=== PATIENT | female | born 1950 | race Caucasian/White ===

== ENCOUNTER → 2024-01-11 11:16 | Outpatient (REF) | payer OTHER, SELFPAY | LOC: HWWDC 11:16 | PROVIDERS: ATTENDING PHYSICIAN Student in an Organized Health Care Education/Training Program; FAMILY PHYSICIAN Family Medicine | DX: Z12.31 Encounter for screening mammogram for malignant neoplasm of breast (principal) | CPT/HCPCS: 77063; 77067 ==

== ENCOUNTER → 2024-09-24 12:51 | Outpatient (REF) | payer OTHER, MEDICARE, SELFPAY | LOC: HWRCS 12:51 | PROVIDERS: ATTENDING PHYSICIAN Internal Medicine; FAMILY PHYSICIAN Student in an Organized Health Care Education/Training Program | DX: I10 Essential (primary) hypertension (principal); I34.0 Nonrheumatic mitral (valve) insufficiency; I45.4 Nonspecific intraventricular block; I34.1 Nonrheumatic mitral (valve) prolapse | CPT/HCPCS: 93306 ==

== ENCOUNTER 2024-10-18 11:07 | Emergency (ER) | payer OTHER, SELFPAY ==
[2024-10-18 11:15] VITALS: BP 162/82
[2024-10-18 11:35] LABS: % Basophils 0.2 % (0-2); % Immature Granulocytes 0.5 % (0-0.5); % Lymphocytes 2.2 % (20.5-51.1); % Monocytes 6.5 % (1.7-9.3); % Neutrophils 90.6 % (42.2-75.2); Absolute Immature Granulocytes 0.1 10^3/uL (0-0.05); Absolute Lymphocytes 0.3 10^3/uL (1.2-3.4); Absolute Monocytes 0.8 10^3/uL (0.1-0.6); Hematocrit 41.9 % (37.0-47.0); Hemoglobin 14.2 g/dL (12.0-16.0); Mean Corp Hgb Conc. 33.9 g/dL (33.0-37.0); Mean Corpuscular Hgb 31.8 pg (27.0-31.0); Mean Corpuscular Volume 93.9 fL (81.0-99.0); Mean Platelet Volume 9.2 fL (7.4-10.4); Nucleated Red Blood Cells % 0 %; Platelet Count 210 10^3/uL (130-400); Red Blood Cell Count 4.46 10^6/uL (4.20-5.40); Red Cell Dist. Width 13.1 % (11.5-14.5); White Blood Cell Count 12.1 10^3/uL (4.8-10.8)
[2024-10-18 12:06] LABS: ALT (SGPT) 38 U/L (0-35); AST (SGOT) 43 U/L (14-36); Albumin 4.9 g/dl (3.5-5.0); Alkaline Phosphatase 58 U/L (38-126); Blood Urea Nitrogen 20 mg/dl (7-17); Carbon Dioxide 28 mmol/L (22-30); Chloride 101 mmol/L (98-107); Glucose 128 mg/dl (70-99); Lipase 104 U/L (23-300); Potassium 3.8 mmol/L (3.5-5.1); Sodium 140 mmol/L (135-145); Total Bilirubin 0.6 mg/dl (0.2-1.3); Total Protein 7.4 g/dl (6.3-8.2); eGFR > 60.00
[2024-10-18 13:03] VITALS: BP 143/102
--- NOTE | 2024-10-18 13:13 | ED.GENMED ---
History of Present Illness
General
Chief Complaint: Abdominal Symptoms
Source: patient
Time Seen by Provider: 10/18/24 12:59
History of Present Illness
History of Present Illness:
74yoF with a history of rheumatoid arthritis, Sjogren's, hypertension, and hyperlipidemia presenting with her and daughter for evaluation of vomiting and diarrhea. Symptoms started around 7pm last night, about 1 hour after eating a pork chop
for dinner. She reports having about 5 episodes of vomiting and diarrhea since her symptoms began. She has been unable to tolerate PO intake or PO medications. She reports intermittent chest pain which she attributes to feeling fatigued. She denies
any chest pain currently. She denies any fevers or abdominal pain. Of note, patient's also had some vomiting and diarrhea last night but he is currently feeling better. No recent travel or recent antibiotics.
Phy Exam
General Physical Exam
General Presentation: well appearing and no apparent distress
General age: appears stated age
General Skin: warm and dry
General Habitus: normal
General Mental: alert
ENT Exam
ENT Exam: normocephalic
Cardiovascular Exam
Cardiovascular Exam: regular rate/rhythm and no murmur
Pulmonary Exam
Pulmonary Exam: lungs clear, no respiratory distress, no rales, no crackles and no rhonchi
Gastrointestinal Exam
Gastrointestinal Exam: non tender, soft and non distended
Neurological Exam
Neurological Exam: alert
[place] Coma Scale
Eye Opening: Spontaneous
Verbal Response: Oriented
Motor Response: Obeys Commands
GCS Total Score: 15
Skin Exam
Skin Exam: normal color and warm/dry
Psychiatric Exam
Psychiatric Exam: normal mood/affect
Course
Orders/Labs/Results
Orders:
Orders
10/18/24 11:27
Complete Blood Count/With Diff Urgent
Comprehensive Metabolic Panel Urgent
Lipase Urgent
10/18/24 13:12
0.9% Sodium Chloride 500 ml [Nss] 500 ml IV BOLUS
Ondansetron Injectable [Zofran] 4 mg IV NOW STA
10/18/24 13:13
Electrocardiogram (*1) Urgent
Reason for Study: Chest Pain
EKG- Treatment ONCE
10/18/24 14:09
Hepatitis A IgM Antibody Urgent
Troponin I Urgent
10/18/24 14:10
Acetaminophen [Tylenol] 650 mg PO NOW STA
10/18/24 14:21
COVID-19 Antigen Urgent
Source: Nasal Swab
Influenza A+B Rapid Molecular Urgent
VICKY Source: Nasal Swab
Specimen Description:
Abnormal Lab Results
10/18/24
11:27
WBC 12.1 H 10^3/uL
(4.8-10.8)
MCH 31.8 H pg
(27.0-31.0)
Abs Immat Gran (auto) 0.1 H 10^3/uL
(0-0.05)
Absolute Neuts (auto) 11.0 H 10^3/uL
(1.4-6.5)
Absolute Lymphs (auto) 0.3 L 10^3/uL
(1.2-3.4)
Absolute Monos (auto) 0.8 H 10^3/uL
(0.1-0.6)
Neutrophils % 90.6 H %
(42.2-75.2)
Lymphocytes % 2.2 L %
(20.5-51.1)
BUN 20 H mg/dl
(7-17)
Glucose 128 H mg/dl
(70-99)
AST 43 H U/L
(14-36)
ALT 38 H U/L
(0-35)
10/18/24 11:27
10/18/24 11:27
Vital Signs
Initial and Last Documented VS:
Initial Vital Signs
Temp Pulse Resp BP Pulse Ox
99.1 F 110 16 162/82 98
10/18/24 11:15 10/18/24 11:15 10/18/24 11:15 10/18/24 11:15 10/18/24 11:15
Last Documented Vital Signs
Temp Pulse Resp BP Pulse Ox
98.6 F 93 23 139/61 93
10/18/24 15:41 10/18/24 15:15 10/18/24 15:15 10/18/24 15:00 10/18/24 15:15
MDM/Problems Addressed
Differential Diagnosis Includes:
74yoF here with nausea, vomiting, and diarrhea since last night. also had similar symptoms but to a lesser degree. HR 110 in triage. Remainder of vitals normal. She is non-toxic appearing. Abdominal exam is benign. Differential diagnosis
includes but is not limited to: viral illness, gastroenteritis, dehydration
Initial ED plan: Abdominal labs obtained in triage. WBC 12 which is nonspecific and may be reactive 2/2 vomiting. Mild transaminitis noted. Renal function stable. Troponin/EKG, COVID/flu swab, stool studies ordered. Will also check hepatitis A
testing given transaminitis. IV Zofran and fluid bolus for symptoms.
*Critical Care Note
Total Time (30-74mins, 75-104mins- exclusive of procedures): Not Applicable
Update Note
Update Note:
Patient spiked a fever to 101 during ED stay. COVID/flu testing negative. She is feeling significantly improved on reassessment and tolerated PO challenge. Patient unable to provide stool sample. Patient requesting discharge which is reasonable.
Suspect viral illness. Prescription provided for Zofran as well as outpatient stool testing. Supportive care discussed. Advised close f/u with PCP and strict ED return precautions discussed. She was discharged in stable condition.
ED Attending Note
-
Portions of this chart may have been created with voice recognition software.� Occasional wrong word or��sound alike� substitutions may have occurred due to the inherent limitations of voice recognition software.
Discharge Plan
Departure
Patient Disposition: Home (Routine Discharge)
Date of Disposition: 10/18/24
Time of Disposition: 15:31
Patient with high blood pressure during this ER visit?: Yes
Discharge Problem:
Nausea, vomiting, and diarrhea, Fever
Instructions: Nausea and Vomiting, Adult (DC)
Prescriptions:
New
ondansetron 4 mg tablet,disintegrating
4 mg PO Q6H PRN (Reason: nausea and vomiting) Qty: 20 0RF
No Action
atorvastatin 20 MG tablet
20 mg PO HS
diltiazem HCl 240 MG capsule,extended release 24hr
240 mg PO DAILY
hydrochlorothiazide 12.5 MG capsule
12.5 mg PO DAILY
hydroxychloroquine 200 MG tablet
300 mg PO DAILY
atenolol 50 MG tablet
50 mg PO HS
Prolia 60 MG/ML syringe
60 mg SQ .2XYEAR
aspirin [Scar Chewable Aspirin] 81 MG tablet,chewable
81 mg PO DAILY
cholecalciferol (vitamin D3) 1,000 UNITS tablet
1,000 units PO DAILY
Vitamin C:
250 mg PO DAILY
Citracel-Calcium Citrate
4 tab PO DAILY
Referrals:
Mariela Gambino DO [Family Provider] -
Activity Restrictions/Additional Instructions:
Take Zofran as needed for nausea. Drink plenty of fluids. Eat a bland diet (rice, applesauce, toast, bananas).
Please follow-up with your family doctor on Sunday. Return to the ER with any worsening symptoms, abdominal pain, or if you are unable to keep down fluids.
Interventions
Interventions:
*Risk Screen - Suicide Last Done: 10/18/24 11:15
*General Assessment Last Done: 10/18/24 13:55
*Neglect/Abuse Screening Last Done: 10/18/24 11:15
*ED COVID-19 Vaccine History Last Done: 10/18/24 13:55
*Nursing Disposition Last Done: 10/18/24 15:42
[facility] Assessment Last Done: 10/18/24 13:55
Discharge Date and Time
Discharge Date/Time: 10/18/24 15:47
Print Language: ROMANIAN
[2024-10-18 13:55] VITALS: BP 143/102; BMI 33.3
[2024-10-18] MEDS: NSS 500 IV (14:10)
[2024-10-18] MEDS: ZOFRAN 4 MG IV (14:14)
[2024-10-18] MEDS: TYLENOL 650 MG PO (14:16)
[2024-10-18 14:22] VITALS: BP 125/92
[2024-10-18 14:47] LABS: Troponin I < 0.012 ng/ml
[2024-10-18 15:00] VITALS: BP 139/61
[2024-10-18 15:03] LABS: COVID-19 Antigen Negative (Negative)
[2024-10-20 19:56] LABS: Hepatitis A IgM Antibody Negative (Negative)
== END 2024-10-18 15:47 | disposition home or self-care (01) ==
LOC: EMR 11:07
PROVIDERS: Physician Assistant; EMERGENCY PHYSICIAN Emergency Medicine; FAMILY PHYSICIAN Family Medicine
DX: R11.2 Nausea with vomiting, unspecified (principal); R19.7 Diarrhea, unspecified; R50.9 Fever, unspecified; I10 Essential (primary) hypertension; M06.9 Rheumatoid arthritis, unspecified; E78.5 Hyperlipidemia, unspecified; M35.00 Sjogren syndrome, unspecified
CPT/HCPCS: 96374; 96361; 99284; 80053; 83690; 84484; 85025; 86709; 87502; 87811; 93005

== ENCOUNTER → 2024-10-28 10:11 | Outpatient (REF) | payer OTHER, SELFPAY | LOC: RCS 10:11 | PROVIDERS: ATTENDING PHYSICIAN Internal Medicine; FAMILY PHYSICIAN Family Medicine | DX: R06.09 Other forms of dyspnea (principal); R07.89 Other chest pain | CPT/HCPCS: 93017 ==

== ENCOUNTER → 2025-01-14 13:20 | Outpatient (REF) | payer OTHER, SELFPAY | LOC: HWWDC 13:20 | PROVIDERS: ATTENDING PHYSICIAN Family Medicine | DX: Z12.31 Encounter for screening mammogram for malignant neoplasm of breast (principal) | CPT/HCPCS: 77063; 77067 ==

== ENCOUNTER 2025-03-05 14:27 | Emergency (ER) | payer OTHER, SELFPAY ==
[2025-03-05 14:29] VITALS: BP 165/74
[2025-03-05 16:51] VITALS: BMI 32.3
[2025-03-05 16:56] LABS: % Basophils 0.5 % (0-2); % Immature Granulocytes 0.2 % (0-0.5); % Lymphocytes 19.7 % (20.5-51.1); % Monocytes 13.1 % (1.7-9.3); % Neutrophils 65.5 % (42.2-75.2); Absolute Eosinophils 0.1 10^3/uL (0-0.7); Absolute Lymphocytes 1.6 10^3/uL (1.2-3.4); Absolute Monocytes 1.1 10^3/uL (0.1-0.6); Absolute Neutrophils 5.4 10^3/uL (1.4-6.5); Hematocrit 38.2 % (37.0-47.0); Hemoglobin 13.2 g/dL (12.0-16.0); Mean Corp Hgb Conc. 34.6 g/dL (33.0-37.0); Mean Corpuscular Volume 92.5 fL (81.0-99.0); Mean Platelet Volume 9.4 fL (7.4-10.4); Nucleated Red Blood Cells % 0 %; Platelet Count 229 10^3/uL (130-400); Red Blood Cell Count 4.13 10^6/uL (4.20-5.40); Red Cell Dist. Width 12.7 % (11.5-14.5); White Blood Cell Count 8.2 10^3/uL (4.8-10.8)
[2025-03-05 17:03] VITALS: BP 154/81
[2025-03-05 17:15] LABS: ALT (SGPT) 27 U/L (0-35); AST (SGOT) 31 U/L (14-36); Albumin 4.2 g/dl (3.5-5.0); Alkaline Phosphatase 61 U/L (38-126); Blood Urea Nitrogen 15 mg/dl (7-17); Calcium 10.3 mg/dl (8.4-10.2); Carbon Dioxide 29 mmol/L (22-30); Chloride 103 mmol/L (98-107); Estimated Creatinine Clearance 54 ml/min; Glucose 107 mg/dl (70-99); Potassium 3.6 mmol/L (3.5-5.1); Sodium 141 mmol/L (135-145); Total Bilirubin 0.5 mg/dl (0.2-1.3); Total Protein 6.8 g/dl (6.3-8.2); eGFR > 60.00
--- NOTE | 2025-03-05 17:38 | ED.GENMED ---
History of Present Illness
General
Chief Complaint: Gait Dysfunction
Source: patient, spouse and family
Exam Limitations: none
Time Seen by Provider: 03/05/25 15:37
History of Present Illness
History of Present Illness:
This is a 74-year-old female who has been dealing with difficulty walking for 2 to 3 weeks. Patient states that she does not have any pain but just has had difficulty keeping her balance and walking. Daughter states that she started to notice that
she was at difficulty walking getting up onto stools back on [place]. states that she has not reported any pain. Patient denies any pain. She states it seems to be intermittently improved and intermittently worse at times. Saw her
bar attendant. She was advised to have PT. No fevers. No joint pain. No muscle pain. No radiating nerve pain. No back pain. No headache. No upper extremity symptoms. Symptoms are only in the left lower extremity and she seems to limp.
Denies back pain.
Past History
Past History
ED Past Medical History: HTN, Hypercholesterolemia and Other (Sjogren's)
Phy Exam
Physical Exam
Physical Exam:
CONSTITUTIONAL Patient alert and oriented to person, place and time. Well-appearing. Vital signs reviewed.
HEAD atraumatic, normocephalic.
EYES eyelids normal to inspection, Extraocular muscles intact, Conjunctiva normal, Sclera normal.
NECK normal range of motion, Trachea midline, no jugular venous distention.
RESPIRATORY CHEST No respiratory distress noted, Chest expansion equal, Bilateral breath sounds clear.
CARDIOVASCULAR regular rate and rhythm, Heart sounds normal.
ABDOMEN abdomen nontender, Bowel sounds normal. No distention.
BACK normal inspection, no obvious deformities
UPPER EXTREMITY range of motion normal, Motor strength normal, no cyanosis, no edema.
LOWER EXTREMITY range of motion normal, Motor strength normal, no cyanosis, no edema. No effusion at the joints. No redness. No swelling. No rash. Negative straight leg raise. No clonus. Normal DTRs. Gait is normal on my assessment.
Patient is able to walk straight. No obvious limp. Normal pulses distally and feet are warm and well-perfused.
NEURO Speech normal, No focal motor deficits, [place] coma scale 15, Memory normal, Cranial Nerves intact to screening exam.
SKIN skin warm, dry, and normal in color.
Course
Orders/Labs/Results
Orders:
Orders
03/05/25 16:17
CT Head W/o Iv Contrast Urgent
Comment:
Reason For Exam: LLE weak, gait disturbance
03/05/25 16:43
Complete Blood Count/With Diff Urgent
Comprehensive Metabolic Panel Urgent
Abnormal Lab Results
03/05/25
16:43
RBC 4.13 L 10^6/uL
(4.20-5.40)
MCH 32.0 H pg
(27.0-31.0)
Absolute Monos (auto) 1.1 H 10^3/uL
(0.1-0.6)
Lymphocytes % 19.7 L %
(20.5-51.1)
Monocytes % 13.1 H %
(1.7-9.3)
Glucose 107 H mg/dl
(70-99)
Calcium 10.3 H mg/dl
(8.4-10.2)
03/05/25 16:43
03/05/25 16:43
Vital Signs
Initial and Last Documented VS:
Initial Vital Signs
Temp Pulse Resp BP Pulse Ox
98.5 F 84 18 165/74 96
03/05/25 14:29 03/05/25 14:29 03/05/25 14:03/05/25 14:03/05/25 14:29
Last Documented Vital Signs
Temp Pulse Resp BP Pulse Ox
98.5 F 84 18 165/74 96
03/05/25 14:29 03/05/25 14:03/05/25 14:03/05/25 14:29 03/05/25 14:29
MDM/Problems Addressed
Differential Diagnosis Includes:
Brain tumor, stroke, peripheral neuropathy, inflammatory joint disease
MDM/Problems Addressed:
Gait dysfunction
*Radiology
Radiology exam reviewed: radiology read reviewed
*Pulse Oximetry
Patient hypoxic: no
*Critical Care Note
Total Time (30-74mins, 75-104mins- exclusive of procedures): Not Applicable
Data Reviewed
Source: patient and family
Further Testing Considered But Not Given:
Consider lumbar imaging but no back pain.
Patient Management
Escalation/DeEscalation of care consider admission/obs:
Patient is quite well. Normal pulses distally. No pain noted or by history. Normal neurologic assessment. No upper extremity symptoms. No cranial nerve symptoms. No speech changes. Gait normal during my exam. Unclear etiology. Will refer to
PCP for MRI of the lumbar spine and brain if symptoms persist
ED Attending Note
-
Portions of this chart may have been created with voice recognition software.� Occasional wrong word or��sound alike� substitutions may have occurred due to the inherent limitations of voice recognition software.
Discharge Plan
Departure
Patient Disposition: Home (Routine Discharge)
Date of Disposition: 03/05/25
Time of Disposition: 17:45
Patient with high blood pressure during this ER visit?: Yes
Discharge Problem:
Gait dysfunction
Instructions: BLOOD PRESSURE
Prescriptions:
No Action
atorvastatin 20 MG tablet
20 mg PO HS
diltiazem HCl 240 MG capsule,extended release 24hr
240 mg PO DAILY
hydrochlorothiazide 12.5 MG capsule
12.5 mg PO DAILY
hydroxychloroquine 200 MG tablet
300 mg PO DAILY
atenolol 50 MG tablet
50 mg PO HS
Prolia 60 MG/ML syringe
60 mg SQ .2XYEAR
aspirin [Scar Chewable Aspirin] 81 MG tablet,chewable
81 mg PO DAILY
cholecalciferol (vitamin D3) 1,000 UNITS tablet
1,000 units PO DAILY
Vitamin C:
250 mg PO DAILY
Citracel-Calcium Citrate
4 tab PO DAILY
ondansetron 4 mg tablet,disintegrating
4 mg PO Q6H PRN (Reason: nausea and vomiting) Qty: 20 0RF
Referrals:
Mariela Gambino DO [Family Provider] -
Activity Restrictions/Additional Instructions:
Gait dysfunction
Please see your doctor in the next 3 to 5 days for follow-up and reevaluation. Further evaluation with an MRI of your brain and lumbar spine may be necessary if symptoms persist. Return immediately for pain of any kind, fevers, motor weakness,
speech changes or any other concerns.
Interventions
Interventions:
*Risk Screen - Suicide Last Done: 03/05/25 14:29
*General Assessment Last Done: 03/05/25 14:29
*Neglect/Abuse Screening Last Done: 03/05/25 16:54
*ED COVID-19 Vaccine History Last Done: 03/05/25 14:29
ED- Neurological Assessment Last Done: 03/05/25 16:51
ED-Musculoskeletal Assessment Last Done: 03/05/25 16:51
ED Swallowing Screen Last Done: 03/05/25 16:51
Discharge Date and Time
Print Language: LAO
[2025-03-05 18:00] VITALS: BP 171/69
== END 2025-03-05 18:33 | disposition home or self-care (01) ==
LOC: EMR 14:27
PROVIDERS: EMERGENCY PHYSICIAN Emergency Medicine; FAMILY PHYSICIAN Family Medicine
DX: R26.89 Other abnormalities of gait and mobility (principal); E78.00 Pure hypercholesterolemia, unspecified; I10 Essential (primary) hypertension; M35.00 Sjogren syndrome, unspecified
CPT/HCPCS: 99284; 70450; 80053; 85025

== ENCOUNTER → 2025-03-24 10:20 | Outpatient (REF) | payer OTHER, SELFPAY | LOC: HWRAD 10:20 | PROVIDERS: ATTENDING PHYSICIAN Internal Medicine Rheumatology; FAMILY PHYSICIAN Family Medicine | DX: M81.0 Age-related osteoporosis without current pathological fracture (principal) | CPT/HCPCS: 77080 ==

== ENCOUNTER → 2025-05-29 13:38 | Outpatient (REF) | payer OTHER, SELFPAY | LOC: PAVMRI 13:38 | PROVIDERS: ATTENDING PHYSICIAN Family Medicine | DX: R26.9 Unspecified abnormalities of gait and mobility (principal) | CPT/HCPCS: 70553; A9575 ==

== ENCOUNTER → 2025-06-01 11:00 | Outpatient (REF) | payer OTHER, SELFPAY | LOC: PAVMRI 11:00 | PROVIDERS: ATTENDING PHYSICIAN Family Medicine | DX: R26.9 Unspecified abnormalities of gait and mobility (principal); R29.898 Other symptoms and signs involving the musculoskeletal system | CPT/HCPCS: 72158; A9575 ==

== ENCOUNTER → 2025-07-22 13:31 | Outpatient (REF) | payer OTHER, SELFPAY | LOC: EMG 13:31 | PROVIDERS: ATTENDING PHYSICIAN Orthopaedic Surgery; FAMILY PHYSICIAN Family Medicine | DX: M25.552 Pain in left hip (principal); R20.0 Anesthesia of skin | CPT/HCPCS: 95886; 95909 ==

== ENCOUNTER 2025-08-05 03:58 | Inpatient (IN) | payer OTHER, SELFPAY ==
[2025-08-05] VITALS (16 sets, daily range): BP systolic 105–173; BP diastolic 60–104; BMI 32.2
[2025-08-05 01:46] LABS: Hematocrit 36.6 % (37.0-47.0); Hemoglobin 12.8 g/dL (12.0-16.0); Mean Corp Hgb Conc. 35.0 g/dL (33.0-37.0); Mean Corpuscular Volume 91.3 fL (81.0-99.0); Nucleated Red Blood Cells % 0 %; Platelet Count 221 10^3/uL (130-400); Red Cell Dist. Width 12.8 % (11.5-14.5)
[2025-08-05] MEDS: DILAUDID 1 MG IV (01:46)
[2025-08-05 01:58] LABS: ALT (SGPT) 29 U/L (0-35); AST (SGOT) 31 U/L (14-36); Albumin 4.6 g/dl (3.5-5.0); Alkaline Phosphatase 74 U/L (38-126); Blood Urea Nitrogen 16 mg/dl (7-17); Calcium 9.2 mg/dl (8.4-10.2); Carbon Dioxide 25 mmol/L (22-30); Chloride 106 mmol/L (98-107); Estimated Creatinine Clearance 53 ml/min; Glucose 184 mg/dl (70-99); Potassium 3.5 mmol/L (3.5-5.1); Sodium 140 mmol/L (135-145); Total Protein 6.8 g/dl (6.3-8.2); eGFR > 60.00
--- NOTE | 2025-08-05 02:25 | HPS.HSE ---
Family Physician
-
Family Physician:
Chief Complaint
-
Left leg pain
History of Present Illness
75-year-old female with past medical history of connective tissue disorder including rheumatoid arthritis, Sjogren's, hypertension, hyperlipidemia, presenting to the emergency department with left leg pain.
Patient has a chronic osteoarthritis of the left knee and has been seen by Ortho and she is pending knee replacement surgery. She was attempting to climb steps at home tonight when up on putting pressure on her left leg she developed severe pain.
Patient has had several month history of weakness to the left lower extremity with pseudo Trendelenburg gait. She has had extensive workup which included an MRI of the brain spinal cord hip and ultimately also MRI of the knee. She had a EMG. The
EMG did not show any pathological findings. The MRI shows chronic degenerative diseases with with Mo significant improvement impingement at the level of the lumbar spine. There is no cord compression. 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
matter leukoaraiosis.
She has been seen by Ortho and spine. After evaluation by Ortho she was found to have [id number] osteoarthritis on the left knee and had a cortisone shot. She is pending surgery in October. She denies any history of chronic steroid use. She
has known osteoporosis and has been on denosumab with improvement in bone density studies.
On arrival in the emergency department she was afebrile, blood pressure was 134/91 with a pulse rate of 77 and she was satting 99% on room air.
CBC was unremarkable. Electrolytes BUN and creatinine were normal. Glucose was normal.
X-ray shows a closed displaced distal femoral fracture
Medical History
Past Medical History
Past Medical History: Reports Other
Additional Past Medical History:
Hypertension
Hyperlipidemia
Mitral regurgitation
Rheumatoid arthritis
Sjogren syndrome
Congenital hearing loss
Past Surgical History: Reports None
Social History
Tobacco: Non-smoker
Alcohol: None
Drug: None
Family History
Family History: Not pertinent
Allergies / Home Medications
Allergies reflects when Allergies were last updated in [employer].
Home Medications with original date entered in [employer]
Allergy/Medication List:
Allergies
Allergy/AdvReac Type Severity Reaction Status Date / Time
lisinopril Allergy Rash Verified 08/05/25 02:14
nebivolol (From Bystolic) Allergy Rash Verified 08/05/25 02:14
Penicillins Allergy Rash Verified 08/05/25 02:14
Home Medications
aspirin 81 mg chewable tablet (Scar Chewable Low Dose Aspirin) 81 mg PO DAILY 12/01/21
atenolol 50 mg tablet 50 mg PO HS 12/01/21
atorvastatin 20 mg tablet 20 mg PO HS 12/01/21
cholecalciferol (vitamin D3) 25 mcg (1,000 unit) tablet 1,000 units PO DAILY 12/01/21
denosumab 60 mg/mL subcutaneous syringe (Prolia) 60 mg SQ .2XYEAR 12/01/21
diltiazem HCl 240 mg capsule,extended release 24 hr 240 mg PO DAILY 12/01/21
hydrochlorothiazide 12.5 mg capsule 12.5 mg PO DAILY 12/01/21
hydroxychloroquine 200 mg tablet 400 mg PO DAILY 12/01/21
Citracel-Calcium Citrate 4 tab PO DAILY 01/19/23
pilocarpine HCl 5 mg tablet 5 mg PO DAILY 08/05/25
Review of Systems
-
Constitutional: Reports No Symptoms
EENT: Reports No Symptoms
Respiratory: Reports No Symptoms
Cardiac: Reports No Symptoms
Abdomen/GI: Reports No Symptoms
: Reports No Symptoms
Musculoskeletal: Reports Joint Pain
Skin: Reports No Symptoms
Neurological: Reports No Symptoms
Endocrine: Reports No Symptoms
Hematologic/Lymphatic: Reports No Symptoms
Psych: Reports No Symptoms
Physical Exam
Vital Signs
Vital Signs
Temp Pulse Resp BP Pulse Ox
98.0 F 77 12 134/91 99
08/05/25 01:23 08/05/25 02:00 08/05/25 02:00 08/05/25 01:39 08/05/25 02:00
Physical Exam
General: Well Developed, Well Nourished and No Apparent Distress
HEENT: NormoCephalic, Moist mucous membranes, Atraumatic and PERRLA
Respiratory: Clear
Cardiac: S1/S2 and Regular Rhythm; No Murmur or Rub
GI: Soft, Non Tender, Non Distended and Normal Bowel Sounds; No Organomegaly
Rectal: Deferred by Provider
Musculoskeletal: No Clubbing, No Cyanosis, No Edema and Other (Limited range of motion of the left lower extremity, it is abducted, she has normal pulses and sensation of the foot and can move toes without any difficulty.); No Normal Gait & Station
Skin: No Rash
Neuro: AO x 3 and Nonfocal/grossly intact
Psych: Agitated
Laboratory Results
-
08/05/25 01:39
08/05/25 01:39
Laboratory Results
Total Bilirubin 0.3 mg/dl (0.2-1.3) 08/05/25 01:39
AST 31 U/L (14-36) 08/05/25 01:39
ALT 29 U/L (0-35) 08/05/25 01:39
Alkaline Phosphatase 74 U/L (38-126) 08/05/25 01:39
Data Reviewed
-
Diagnostic Radiology: Image Personally Visualized and interpreted
Lab Data: Labs Reviewed by me
Old Records: Reviewed
Impression/Plan
-
IMPRESSION:
75-year-old with history of hypertension, hyperlipidemia, rheumatoid arthritis and Sjogren's, not on chronic steroids who presents to the emergency department with) pathological fracture within known traumatic fracture of the long bones of the
distal femur on the left, displaced but closed.
PLAN:
Femoral fracture -displaced closed femoral fracture
-Admit to MedSurg
- Traction by ED/Ortho
- vascular checks
-No weightbearing to the left lower extremity for now
-N.p.o. for now
-Pain control
-Antiemetics, IV fluids, retention monitoring
-Ortho notified and consulted
-Hold all thinners including low-dose aspirin for now
Hypertension
-Continue diltiazem and hydrochlorothiazide as well as atenolol and statin
Connective tissue disease
-Continue Plaquenil
PT consult
LLE weakness - Ongoing for months. Cannot fully evaluate now due to injury but w/u so far unremarkable
- recommend outpatient neurology eval post operatively
DVT prophylaxis�SCDs for now
CODE STATUS�full code
--- NOTE | 2025-08-05 03:28 | ED.MUSCINJ ---
HPI-Injury
General
Chief Complaint: Musculo-Skeletal Complaint
Source: patient
Exam Limitations: none
Time Seen by Provider: 08/05/25 01:48
Nursing documentation reviewed up to this point in time: agreed with
History of Present Illness-Injury
Initial Injury comments:
Note:
CHIEF COMPLAINT(S)
Inability to bear weight on the left leg and significant pain in the left leg.
HISTORY OF PRESENT ILLNESS
The patient is a 75-year-old female presenting with an acute onset of left leg pain and inability to bear weight. She reports that while attempting to walk up the stairs, her left leg gave out, and she could not continue putting weight on it. The
patient did not fall and denied hitting her head. Her was present during the incident.
She describes the pain as significant, with difficulty determining the exact location, though she reports pain in both the hip and knee regions. The patient is scheduled to undergo a knee replacement, but her current inability to bear weight is not
thought to be directly associated with knee pain by her custom framing specialist. She has had an Magnetic Resonance Imaging (MRI) of her brain, spine, hip, and knee as well as an Electromyography (EMG) test arranged for further assessment, with
follow-up appointments to discuss results.
The patient currently awaits radiological evaluation to assist in diagnosing her condition. Pain management has been initiated, and the medical team is in the process of reviewing the situation.
PHYSICAL EXAM
General: Alert, no acute distress.
Skin: Warm, dry.
Head: Normocephalic, atraumatic.
Neck: Supple, trachea midline.
Eye, Ears, Nose, Mouth, and Throat: Oral mucosa moist.
Cardiovascular: Normal peripheral perfusion, no edema.
Respiratory: Respirations are non-labored.
Gastrointestinal: Abdomen nondistended.
Back: Normal range of motion, normal alignment.
Musculoskeletal: Normal range of motion, normal strength.
Neurological: Alert and oriented to person, place, time, and situation, no focal neurological deficit observed.
Psychiatric: Cooperative, appropriate mood & affect.
PLAN
Initiate pain management.
Obtain X-ray of the left leg for further evaluation.
Review upcoming MRI and EMG results with the patients specialists.
DIFFERENTIAL DIAGNOSIS
The Differential Diagnosis includes, in no particular order and is not limited to:
1. Osteoarthritis-related knee instability
2. Hip fracture or dislocation
3. Spinal stenosis
4. Neuropathy or radiculopathy
5. Muscle strain or tear
6. Ligamentous injury
7. Stroke
8. Peripheral vascular disease
9. Compartment syndrome
10. Femoral nerve dysfunction
Disposition:
SUMMARY OF ENCOUNTER
The patient, a 75-year-old female, presented with a left mid-shaft femur fracture. Management included assessing her vascular status where good distal pulses were confirmed.
DISPOSITION
Will be admitted to the hospital service.
MANAGEMENT OF THE PATIENTS CARE WAS DISCUSSED WITH
Orthopedic surgery was contacted for further management.
PLAN
Admit to the hospital for further management and possible surgical intervention for the left femur fracture.
MEDICAL DECISION MAKING
-Complexity of Data Reviewed: Chronic conditions affecting care due to osteoarthritis and recent acute left femur fracture.
-Data:
Category 3
Discussion of management with orthopedic surgery regarding further management of the femur fracture.
DIAGNOSIS
- Femur fracture, left mid-shaft (ICD-10: S72.302)
Past History
Past History
ED Past Medical History: HTN, Hypercholesterolemia and Other (Sjogren's)
Phy Exam
Physical Exam
Physical Exam:
.
Injury Course
Orders/Labs/Results
Orders:
Orders
08/05/25 01:39
Complete Blood Count/With Diff Urgent
Comprehensive Metabolic Panel Urgent
08/05/25 01:45
HYDROmorphone [Dilaudid] 1 mg IV NOW STA
08/05/25 01:49
Femur, Left 1 View [CR Femur - Left 1 View] Urgent
Comment: portable due to pt being unstable
Reason For Exam: ob deformity
08/05/25 02:59
Admit/Transfer Patient As Directed
Co-Sign Provider:
Level of Care: Inpatient admission
Assign to:: Medical/Surgical
Physician / Group: [facility]
Diagnosis: Left distal femur fracture
Reason for Hospitalization: femur fracture
Expected length of stay greater than two midnights?: Yes
ELOS- Estimated Length of Stay in days: 2
I certify the patient meets the requirements for IP care: Yes
PRN Pain Medication Management As Directed
May give lesser potent ordered pain med per pt: Yes
preference::
Protocol:: Medication orders for pain may be administered in a
manner that supports deferring to patient preference
when the pt is:
- Requesting an ordered lesser potent pain medication.
Least to most potent pain medications are defined
as: acetaminophen < NSAID < tramadol < opioids
(morphine, oxycodone, hydromorphone).
- Requesting a lesser dose of the same medication IF
ORDERED.
- Requesting a less intrusive route of administration
if both routes are prescribed by the provider (PO <
IV).
08/05/25 03:00
Code Status As Directed
Resuscitation Status: Full Code
08/05/25 04:37
Acetaminophen [Tylenol] 650 mg PO Q4HWA
HYDROmorphone [Dilaudid] 0.5 mg IV Q1HPRN PRN
Magnesium Hydroxide [Milk of Magnesia] 30 ml PO DAILYPRN PRN
Ondansetron Injectable [Zofran] 4 mg IV Q6HPRN PRN
Oxycodone [Roxicodone] 5 mg PO Q4HPRN PRN
Tamsulosin [Flomax] 0.4 mg PO DAILYPRN PRN
08/05/25 04:37
ORTHOPEDIC CONSULT Routine
Consulting Provider: Jorge Us
Was physician already notified: Yes
Activity As Directed
Activity Level: With Assistance
Bladder Scan As Directed
Follow Bladder Retention/Intermittent Cath Algorithm?: Yes
PRN if no void in __ hours: 6
Comment: if not voiding 6 hrs upon arrival to floor, bladder scan & follow algorithm
Intake/ Output As Directed
Frequency: Per unit guidelines
Neurovascular Checks As Directed
Location: Left Lower extremity
Frequency: q2h
Pneumatic Compression Sleeves As Directed
Type: Knee high
Straight Cath As Directed
Frequency: Per Retention Algorithm
Additional Instructions: straight cath as needed per acute urinary retention algorithm for 24 hrs
Additional Instructions: for bladder scan greater than 400 mL
Vital Signs As Directed
Frequency: Per unit guidelines
Weight Bearing Status As Directed
Weight bearing to: Left lower extremity
Type: Non Wt. bearing
Pt Eval And Treat Routine
Activity Level: With Assistance
DX Deep Vein Thrombosis Video Routine
08/05/25 Breakfast
NPO
Allow oral meds: Yes
Allow clear liquids: Sips of Clears
NPO with Ice Chips: Yes
08/05/25 08:00
Cholecalciferol (Vitamin D3) [VITAMIN D3 (cholecalciferol)] 25 mcg PO DAILY
Diltiazem Extended Release [Cardizem Cd] 240 mg PO DAILY
Hydroxychloroquine [Plaquenil] 400 mg PO DAILY
Pilocarpine Non-Formulary [Salagen] 5 mg PO DAILY
08/05/25 20:00
Docusate Sodium [Colace] 100 mg PO BID
Sennosides [Senokot] 17.2 mg PO BID
08/05/25 22:00
Atenolol [Tenormin] 50 mg PO HS
Atorvastatin [Lipitor] 20 mg PO HS
Abnormal Lab Results
08/05/25
01:39
RBC 4.01 L 10^6/uL
(4.20-5.40)
Hct 36.6 L %
(37.0-47.0)
MCH 31.9 H pg
(27.0-31.0)
Absolute Monos (auto) 1.2 H 10^3/uL
(0.1-0.6)
Monocytes % 11.3 H %
(1.7-9.3)
Glucose 184 H mg/dl
(70-99)
08/05/25 01:39
08/05/25 01:39
*Radiology
Radiology exam reviewed: preliminary read by ED provider (Femur fracture)
*Pulse Oximetry
SaO2: 99
Oxygen Mode of Delivery: Room air
Patient hypoxic: no
*Critical Care Note
Total Time (30-74mins, 75-104mins- exclusive of procedures): Not Applicable
ED Attending Note
-
Portions of this chart may have been created with voice recognition software.� Occasional wrong word or��sound alike� substitutions may have occurred due to the inherent limitations of voice recognition software.
Discharge Plan
Departure
Patient Disposition: Admit
Date of Disposition: 08/05/25
Time of Disposition: 03:30
Admit to: Telemetry
Presentation/result/management discussed w/ accepting MD/DO: Hospitalist
Condition: Good
Discharge Problem:
Femur fracture, left
Interventions
Interventions:
*Risk Screen - Suicide Last Done: 08/05/25 01:23
*General Assessment Last Done: 08/05/25 01:23
*Neglect/Abuse Screening Last Done: 08/05/25 01:23
*ED COVID-19 Vaccine History Last Done: 08/05/25 01:23
*Nursing Disposition Last Done: 08/05/25 04:20
ED-Musculoskeletal Assessment Last Done: 08/05/25 01:42
Discharge Date and Time
Discharge Date/Time: 08/05/25 04:21
[2025-08-05] MEDS: TYLENOL 650 MG PO ×2 (05:29→22:25)
[2025-08-05] MEDS: DILAUDID 0.5 MG IV ×5 (05:33→14:44)
--- NOTE | 2025-08-05 06:14 | PTCARENOTE ---
Pt arrived to unit AAOx3, in pain, crying with repositioning. Pt oriented to unit, call watkins in reach.
--- NOTE | 2025-08-05 07:49 | CON.ORTHO ---
Documented by User: Lesa Hairston PA-C 08/05/25 08:02
Consultation
-
Date/Time Consultation Requested: 08/05/2025; time unknown
Date/Time Consultation Performed: 08/05/2025; 0730
Requesting Provider: unknown
Performing Provider: Lesa Hairston PA-C for Dr. Jorge Us
Reason for Consultation: Left femur fracture
Consultation - Orthopedics
History
Diane is a 75 year old female with PMH of rheumatoid arthritis, Sjogren's, hypertension, hyperlipidemia, osteoporosis and congenital hearing loss seen today for her left leg. She reports she was walking up the stairs to bed last night when her left
leg gave out on her. She reports her leg buckled/twisted, and she started to fall, but her was able to catch her. She did not hit the ground, and there was no head strike. She reports severe onset of pain in her thigh following this incident
which prompted them to present to ED. X-rays reveals a femoral shaft fracture. She is resting comfortably in bed this morning, and her and daughter are at the bedside. She does endorse pain in the thigh that is worse with movement. She
denies pain elsewhere.
She reports she has been dealing with weakness in her left leg ongoing since February. She reports her gait has been off, but she denies any significant pain in her low back, hip or knee. She denies any falls or injuries prior to onset of these
symptoms. She has undergone an extensive workup to determine the origin of her symptoms including a CT of her head, brain MRI, lumbar spine MRI and MRIs of her hip and knee. She has also undergone an EMG which was negative. She was initially
scheduled for a left total knee arthroplasty under the direction of Dr. Campbell in October, but was considering postponing this due to her lack of pain and concern over recovery given her weakness. She denies any personal or family history of
neurological conditions. 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 She denies any history of cancer or malignancies. She does have a history of osteoporosis and is on Prolia.
She lives at home with her . She lives in a two story home. She denies history of DVT, CVA, AR or DVT. She has not had any surgery in the past, but denies any known family history of difficulty with anesthesia.
Allergies / Home Medications
Allergy/AdvReac Type Severity Reaction Status Date / Time
lisinopril Allergy Rash Verified 08/05/25 02:14
[facility] Allergy Rash Verified 08/05/25 02:14
Penicillins Allergy Rash Verified 08/05/25 02:14
�Medication �Instructions �Recorded
aspirin 81 mg chewable tablet 81 mg PO DAILY 12/01/21
(Scar Chewable Low Dose Aspirin)
atenolol 50 mg tablet 50 mg PO HS 12/01/21
atorvastatin 20 mg tablet 20 mg PO HS 12/01/21
cholecalciferol (vitamin D3) 25 1,000 units PO DAILY 12/01/21
mcg (1,000 unit) tablet
denosumab 60 mg/mL subcutaneous 60 mg SQ .2XYEAR 12/01/21
syringe (Prolia)
diltiazem HCl 240 mg 240 mg PO DAILY 12/01/21
capsule,extended release 24 hr
hydrochlorothiazide 12.5 mg capsule 12.5 mg PO DAILY 12/01/21
hydroxychloroquine 200 mg tablet 400 mg PO DAILY 12/01/21
Citracel-Calcium Citrate 4 tab PO DAILY 01/19/23
pilocarpine HCl 5 mg tablet 5 mg PO DAILY 08/05/25
Vital Signs / Lab Results
Temp Pulse Resp BP Pulse Ox
98 F 85 16 160/68 95
08/05/25 05:46 08/05/25 05:46 08/05/25 05:46 08/05/25 05:46 08/05/25 05:46
08/05/25 01:39
08/05/25 01:39
Single view of the left femur reveals a displaced, midshaft femur fracture.
Directed exam of the left lower extremity reveals leg resting in shortened and externally rotated position. Deformity about the thigh, and edema generally about the thigh. Tenderness to palpation about the fracture site, but thigh is soft and
compressible. Calf soft and nontender. Patient able to wiggle toes, plantar and dorsiflex ankle. NVID.
Assessment / Plan
75 yo F with left femoral shaft fracture
--Unfortunately, Diane sustained a femoral shaft fracture in the incident walking upstairs last night. I recommend proceeding with a left intramedullary nail for surgical fixation of her fracture. The risks, benefits, alternatives, recovery process
and potential complications were discussed in detail. She verbalized understanding and would like to proceed with surgery. Surgical and blood consents have been signed and placed on the patient chart. Plan for OR later today under the direction of
Dr. Us.
--I did also discuss with the patient that her ongoing weakness/gait changes, along with her current injury are a very odd presentation. Though she does have osteoporosis, it is quite odd to sustain a femoral shaft fracture without a trauma or known
malignancy. We discussed that she will likely have to continue workup post-operatively to determine a potential root of her symptoms. She verbalized understanding and is in agreement.
--NPO until surgery.
--NWB to LLE until surgery.
--Pain control prn. Ice prn for pain and edema control.
--Abx and irrigation ordered to OR.
--T+S ordered.
--Orthopedics will continue to follow along.

Documented by User: Jorge Us MD 08/05/25 15:33
Consultation - Orthopedics
History
Diane is a 75 year old female with PMH of rheumatoid arthritis, Sjogren's, hypertension, hyperlipidemia, osteoporosis and congenital hearing loss seen today for her left leg. She reports she was walking up the stairs to bed last night when her left
leg gave out on her. She reports her leg buckled/twisted, and she started to fall, but her was able to catch her. She did not hit the ground, and there was no head strike. She reports severe onset of pain in her thigh following this incident
which prompted them to present to ED. X-rays reveals a femoral shaft fracture. She is resting comfortably in bed this morning, and her and daughter are at the bedside. She does endorse pain in the thigh that is worse with movement. She
denies pain elsewhere.
She reports she has been dealing with weakness in her left leg ongoing since February. She reports her gait has been off, but she denies any significant pain in her low back, hip or knee. She denies any falls or injuries prior to onset of these
symptoms. She has undergone an extensive workup to determine the origin of her symptoms including a CT of her head, brain MRI, lumbar spine MRI and MRIs of her hip and knee. She has also undergone an EMG which was negative. She was initially
scheduled for a left total knee arthroplasty under the direction of Dr. Campbell in October, but was considering postponing this due to her lack of pain and concern over recovery given her weakness. She denies any personal or family history of
neurological conditions. 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 She denies any history of cancer or malignancies. She does have a history of osteoporosis and is on Prolia.
She lives at home with her . She lives in a two story home. She denies history of DVT, CVA, AR or DVT. She has not had any surgery in the past, but denies any known family history of difficulty with anesthesia. Patient seen and evaluated by
me (Dr. Us). Risks, benefits, and possible complications of surgical treatment were discussed. Patient questions answered. Patient consents to left femur intramedullary rodding. Surgery tentatively scheduled for this afternoon.
[2025-08-05] MEDS: CARDIZEM CD 240 MG PO (08:22)
[2025-08-05] MEDS: VITAMIN D3 (cholecalciferol) PO (08:33)
[2025-08-05] MEDS: TYLENOL PO ×3 (08:38→16:37)
[2025-08-05] MEDS: PLAQUENIL PO (08:38)
[2025-08-05] MEDS: SALAGEN PO (08:38)
--- NOTE | 2025-08-05 11:19 | W.PN.HOSP.TC ---
Today's Communication/Plan
-
see PN
Assessment / Plan
Assessment / Plan
75yo F with PMHX of HTN, Sjogren, RA, HLD, ASCVD, MV prolapse came after fall to the floor when she stepped onto the step with her LLE. SHe has chronic problem with LLE strength for some time now with MRI head, spine, EMG done as outpatient,
currently scheduled for MRI of L knee and ortho follow up due to severe osteoarthritis of her knee. Found transverse fracture through the midshaft of the left femur
A/P:
#transverse fracture through the midshaft of the left femur
most liekly 2/2 osteoporosis
already on Prolia
Pain mgmt
Ortho mgmt
Patient with moderate risk for intermediate risk surgery and will need chest XR and EKG ahead of the intervention
#Hypoxia in ED
resolved with deep breathing, so etiology is most liekly 2/2 shallow breathing due to pain
Incentive spirometry
Chest XR
#MV prolapse
EKG preop
#Sjogrens
#RA
#HLD
#Hearing impaired
#ASCVD
#EssentiaL HTN
cont home meds
#Anxiety
Xanax PRN
DVt ppx SCDs in prep for Sx
Full code
I have spent at least 54min reviewing chart, test results, communication with consultants and providing direct patient care
Anticipated Discharge: > 48 hours
Subjective/Interval History
-
Date of Service: August 05, 2025
Objective Data
-
Labs:
Laboratory Results
08/05/25
01:39
WBC 10.8
Hgb 12.8
Hct 36.6 L
Plt Count 221
Sodium 140
Potassium 3.5
Chloride 106
Carbon Dioxide 25
BUN 16
Creatinine 0.8
Glucose 184 H
Calcium 9.2
Total Bilirubin 0.3
AST 31
ALT 29
Alkaline Phosphatase 74
Vital Signs:
Vital Signs
Temp Pulse Resp BP Pulse Ox
98.1 F 101 18 173/82 93
08/05/25 07:00 08/05/25 07:00 08/05/25 07:00 08/05/25 07:00 08/05/25 07:00
Review of Systems
-
History Source: Patient
All other systems: Reviewed and negative
Musculoskeletal: Reports Other (LLE pain)
Physical Exam
-
General: Well Nourished and No Apparent Distress
HEENT: Moist Mucous Membranes and Hearing Impaired
Respiratory: Clear to Auscultation
Cardiac: Regular Rhythm
GI: Soft, Nontender and Nondistended
Musculoskeletal: No Clubbing, No Cyanosis and Edema, Left Lower Extrem
Neuro: Awake, Alert, Oriented and AO x 3
[2025-08-05] MEDS: XANAX 0.25 MG PO (12:05)
--- NOTE | 2025-08-05 14:47 | PTCARENOTE ---
Patient with neurovascular checks intact , left leg a'10' out of 10 pain. Iv Dilaudid as ordered. Incont urine x 1 , no c/o abd pain . NPO with sips maintained. Able to make needs known. Family at bedside .
[2025-08-05] MEDS: NSS 1000 IV (21:09)
--- NOTE | 2025-08-05 21:50 | PTCARENOTE ---
Received pt. from PACU s/p ORIF. Pt. A&Ox3, tearful, and anxious. Oriented pt. to room and nurse call system. Bed locked and in lowest position, side rails in place, and call light within reach. Family at bedside.
[2025-08-05] MEDS: TENORMIN 50 MG PO (22:24)
[2025-08-05] MEDS: COLACE 100 MG PO (22:24)
[2025-08-05] MEDS: LIPITOR 20 MG PO (22:24)
[2025-08-05] MEDS: SENOKOT 17.2 MG PO (22:29)
[2025-08-05] MEDS: ASPIRIN 325 MG PO (22:30)
[2025-08-06] VITALS (7 sets, daily range): BP systolic 119–129; BP diastolic 52–71; PULSE 76–77; O2SAT 94–95
[2025-08-06] MEDS: ANCEF 5 IV ×2 (00:22→09:13)
[2025-08-06] MEDS: TYLENOL PO (00:26)
[2025-08-06] MEDS: TYLENOL 650 MG PO ×5 (02:25→21:57)
--- NOTE | 2025-08-06 07:12 | W.PN.ORTHO ---
Today's Communication / Plan
-
PT/OT
Aspirin/mechanical devices/thigh-high AUDRA stockings for DVT prophylactics
Partial weightbearing left lower extremity with walker
Ice with elevation to control swelling and pain
Skin clip removal 2 weeks postop
Follow-up with orthopedics 2 weeks postop for skin clip removal
Patient and family would like to take her home with visiting nurses once medically stable
Assessment
.
Distal Motor Intact: Yes
Dressing:
Clean, dry and intact.
Plan
.
Surgery / Date: L hip Gamma Nail 08/05 [facility]
DVT Prophylaxis: Aspirin
Activity:
Out of bed.
PT/OT
Discharge Plan: Home w/ VN
Subjective
.
.:
Daughter at bedside. Patient resting comfortably. She only took Tylenol overnight for pain.
Vital Signs and Labs
.
Vital Signs and Labs:
Temp Pulse Resp BP Pulse Ox
97.6 F 73 16 119/55 95
08/06/25 03:15 08/06/25 03:15 08/06/25 03:15 08/06/25 03:15 08/06/25 03:15
[2025-08-06] MEDS: NSS 1000 IV (07:17)
[2025-08-06 07:54] LABS: Hematocrit 27.8 % (37.0-47.0); Hemoglobin 9.6 g/dL (12.0-16.0); Mean Corp Hgb Conc. 34.5 g/dL (33.0-37.0); Mean Corpuscular Volume 91.4 fL (81.0-99.0); Nucleated Red Blood Cells % 0 %; Platelet Count 203 10^3/uL (130-400); Red Cell Dist. Width 13.1 % (11.5-14.5)
[2025-08-06 08:00] LABS: ALT (SGPT) 27 U/L (0-35); AST (SGOT) 37 U/L (14-36); Albumin 3.6 g/dl (3.5-5.0); Alkaline Phosphatase 45 U/L (38-126); Blood Urea Nitrogen 14 mg/dl (7-17); Calcium 7.8 mg/dl (8.4-10.2); Carbon Dioxide 25 mmol/L (22-30); Chloride 105 mmol/L (98-107); Estimated Creatinine Clearance 71 ml/min; Glucose 139 mg/dl (70-99); Potassium 4.0 mmol/L (3.5-5.1); Sodium 137 mmol/L (135-145); Total Protein 5.7 g/dl (6.3-8.2); eGFR > 60.00
[2025-08-06] MEDS: ASPIRIN 325 MG PO (09:13)
[2025-08-06] MEDS: COLACE 100 MG PO ×2 (09:13→20:14)
[2025-08-06] MEDS: ORETIC 12.5 MG PO (09:14)
[2025-08-06] MEDS: SENOKOT 17.2 MG PO ×2 (09:14→20:14)
[2025-08-06] MEDS: PLAQUENIL 400 MG PO (09:14)
[2025-08-06] MEDS: CARDIZEM CD 240 MG PO (09:14)
[2025-08-06] MEDS: VITAMIN D3 (cholecalciferol) 25 MCG PO (09:14)
[2025-08-06] MEDS: SALAGEN 5 MG PO (09:14)
[2025-08-06] MEDS: DILAUDID 0.5 MG IV (09:23)
--- NOTE | 2025-08-06 09:52 | W.PN.HOSP.TC ---
Today's Communication/Plan
-
PT/OT, but family expecting return home as they stated that they have enough assistance to provide to the patient
follow Hgb in AM
Assessment / Plan
Assessment / Plan
75yo F with PMHX of HTN, Sjogren, RA, HLD, ASCVD, MV prolapse came after fall to the floor when she stepped onto the step with her LLE. SHe has chronic problem with LLE strength for some time now with MRI head, spine, EMG done as outpatient,
currently scheduled for MRI of L knee and ortho follow up due to severe osteoarthritis of her knee. Found transverse fracture through the midshaft of the left femur
A/P:
#transverse fracture through the midshaft of the left femur
most liekly 2/2 osteoporosis
already on Prolia
Pain mgmt
Ortho mgmt: s/p L hip Gamma Nail on 08/05/25 with , postOP course unremarkable, remove clips in 2 weeks with ortho, partial WB, ASA 325mg for DVT ppx
PT/OT
#Acute blood loss anemia 2/2 trauma
significant posttraumatic bleeding
Post OP - thigh soft, no significant blood on dressing
follow CBC
#Hypoxia in ED
resolved with deep breathing, so etiology is most liekly 2/2 shallow breathing due to pain
Incentive spirometry
Chest XR
#MV prolapse
EKG preop
#Sjogrens
#RA
#HLD
#Hearing impaired
#ASCVD
#EssentiaL HTN
cont home meds
#Anxiety
Xanax PRN
DVt ppx ASA as per Ortho
Full code
I have spent at least 51min reviewing chart, test results, communication with consultants and providing direct patient care
Anticipated Discharge: Within 24 hours
Subjective/Interval History
-
Date of Service: August 06, 2025
Objective Data
-
Labs:
Laboratory Results
08/06/25
06:56
WBC 12.1 H
Hgb 9.6 L D
Hct 27.8 L
Plt Count 203
Sodium 137
Potassium 4.0
Chloride 105
Carbon Dioxide 25
BUN 14
Creatinine 0.6
Glucose 139 H
Calcium 7.8 L
Total Bilirubin 0.5
AST 37 H
ALT 27
Alkaline Phosphatase 45
Vital Signs:
Vital Signs
Temp Pulse Resp BP Pulse Ox
97.9 F 83 16 123/71 97
08/06/25 08:15 08/06/25 08:15 08/06/25 08:15 08/06/25 08:15 08/06/25 08:15
I&O
08/05/25 08/06/25 08/07/25
06:59 06:59 06:59
Intake Total 175 / 175
Balance 175 / 175
Review of Systems
-
History Source: Patient
All other systems: Reviewed and negative
Physical Exam
-
General: No Apparent Distress
Musculoskeletal: No Edema and Edema, Left Lower Extrem
Neuro: Awake, Alert, Oriented and AO x 3
Psych: Calm and Apparent Dementia
--- NOTE | 2025-08-06 10:13 | CM ---
Reviewed the chart notes and spoke with the patient, spouse and daughter at the bedside. The patient resides with her spouse in a two story home with two steps to enter. The patient reports no DME/VN/SNF in the past. The patient confirmed her
pharmacy of choice is [facility]. Per daughter, the patient will be converting her dining room into a bedroom for the patient. Per daughter, she will be staying in the patient's home for the next month to assist as needed. CM did
explain the need to have PT/OT evaluation for safe discharge planning. CM continues to be available to patient/family and is monitoring medical plan for needs at discharge.
Plan: Discharge plans will depend on the patient's progress.
[2025-08-06] MEDS: ROXICODONE 5 MG PO ×2 (13:03→20:22)
[2025-08-06] MEDS: LIPITOR 20 MG PO (21:41)
[2025-08-06] MEDS: TENORMIN 50 MG PO (21:41)
[2025-08-07] VITALS (7 sets, daily range): BP systolic 111–138; BP diastolic 46–67; PULSE 78; O2SAT 93
[2025-08-07] MEDS: TYLENOL 650 MG PO ×4 (02:17→21:36)
[2025-08-07] MEDS: ROXICODONE 10 MG PO ×2 (05:52→13:42)
[2025-08-07 07:55] LABS: Hematocrit 24.6 % (37.0-47.0); Hemoglobin 8.6 g/dL (12.0-16.0)
[2025-08-07] MEDS: ORETIC 12.5 MG PO (08:08)
--- NOTE | 2025-08-07 08:08 | W.PN.ORTHO ---
Today's Communication / Plan
-
75F s/p L hip CMN w/ Dr. Us 08/05
PT/OT
Aspirin/mechanical devices/thigh-high AUDRA stockings for DVT prophylactics
Partial weightbearing left lower extremity with walker
Ice with elevation to control swelling and pain
Skin clip removal 2 weeks postop
Follow-up with orthopedics 2 weeks postop for skin clip removal
DC planning- Patient and family would like to take her home with visiting nurses once medically stable
Ortho surg will follow peripherally- will have discharge summary UTD
Assessment
.
Distal Motor Intact: Yes
Dressing:
Clean, dry and intact.
Plan
.
Surgery / Date: L hip CMN 08/05 [facility]
DVT Prophylaxis: Aspirin
Activity:
Out of bed.
PT/OT
Subjective
.
.:
Patient resting comfortably.
Vital Signs and Labs
.
Vital Signs and Labs:
Lab Results
08/07/25 07:18
Temp Pulse Resp BP Pulse Ox
98.4 F 77 18 127/53 98
08/07/25 07:13 08/07/25 07:13 08/07/25 07:13 08/07/25 07:13 08/07/25 07:13
[2025-08-07] MEDS: CARDIZEM CD 240 MG PO (08:10)
[2025-08-07] MEDS: PLAQUENIL 400 MG PO (08:11)
[2025-08-07] MEDS: SALAGEN 5 MG PO (08:11)
[2025-08-07] MEDS: SENOKOT 17.2 MG PO ×2 (08:11→21:36)
[2025-08-07] MEDS: VITAMIN D3 (cholecalciferol) 25 MCG PO (08:11)
[2025-08-07] MEDS: ASPIRIN 325 MG PO (08:11)
[2025-08-07] MEDS: COLACE 100 MG PO ×2 (08:11→21:36)
[2025-08-07] MEDS: TYLENOL PO ×3 (08:12→23:36)
[2025-08-07 08:33] LABS: Blood Urea Nitrogen 19 mg/dl (7-17); Calcium 7.9 mg/dl (8.4-10.2); Carbon Dioxide 28 mmol/L (22-30); Chloride 105 mmol/L (98-107); Estimated Creatinine Clearance 53 ml/min; Glucose 111 mg/dl (70-99); Potassium 3.7 mmol/L (3.5-5.1); Sodium 138 mmol/L (135-145); eGFR > 60.00
--- NOTE | 2025-08-07 09:06 | W.PN.HOSP.TC ---
Addendum entered and electronically signed by Tay Gilbert MD 08/07/25 12:09:
Patient requires a wheelchair with elevating leg rests within the home to complete their daily activities
Addendum entered and electronically signed by Tay Gilbert MD 08/07/25 11:25:
The patient is in need of a hospital bed due to femur fracture repair requiring positioning of the body in ways not feasible with an ordinary bed in order to alleviate pain. Patient requires frequent changes in body position and the need for an
immediate change in position. The patient requires a a bedside commode due to not having a bathroom on the same floor and being unable to ambulate to the bathroom. She also requires a bed side tray
Original Note:
Today's Communication/Plan
-
dc
Assessment / Plan
Assessment / Plan
75yo F with PMHX of HTN, Sjogren, RA, HLD, ASCVD, MV prolapse came after fall to the floor when she stepped onto the step with her LLE. SHe has chronic problem with LLE strength for some time now with MRI head, spine, EMG done as outpatient,
currently scheduled for MRI of L knee and ortho follow up due to severe osteoarthritis of her knee. Found transverse fracture through the midshaft of the left femur. s/p L hip Gamma Nail on 08/05/25 with , postOP course unremarkable, remove
clips in 2 weeks with ortho, partial WB, ASA 325mg for DVT ppx. Had significant swelling post-trauma due to bleeding into the thigh, so Hgb dropped. discussed drop with ortho bedside no concern for ongoing bleeding. most likely Hgb equilibration
after trauma, bleed, Sx and IVF Repeat CBC in 5 days - family verbalized understanding of the instructions. medically stable for d/c home
A/P:
#transverse fracture through the midshaft of the left femur
most liekly 2/2 osteoporosis
already on Prolia
Pain mgmt
Ortho mgmt: s/p L hip Gamma Nail on 08/05/25 with , postOP course unremarkable, remove clips in 2 weeks with ortho, partial WB, ASA 325mg for DVT ppx
PT/OT
#Acute blood loss anemia 2/2 trauma
significant posttraumatic bleeding
Post OP - thigh soft, no significant blood on dressing, discussed drop with ortho bedside no concern for ongoing bleeding. most likely Hgb equilibration after trauma, bleed, Sx and IVF
Repeat CBC in 5 days - family verbalized understanding of the instructions
#Hypoxia in ED
resolved with deep breathing, so etiology is most liekly 2/2 shallow breathing due to pain
Incentive spirometry
Chest XR unremarkable for acute findings
#MV prolapse
EKG preop - no ischemic findings
#Hypocalcemia
repelted
#Sjogrens
#RA
#HLD
#Hearing impaired
#ASCVD
#Essential HTN
cont home meds
#Anxiety
Xanax PRN
DVt ppx ASA as per Ortho
Full code
I have spent at least 36min reviewing chart, test results, communication with consultants and providing direct patient care
Anticipated Discharge: Today
Subjective/Interval History
-
Date of Service: August 07, 2025
Objective Data
-
Labs:
Laboratory Results
08/07/25
07:18
Hgb 8.6 L
Hct 24.6 L
Sodium 138
Potassium 3.7
Chloride 105
Carbon Dioxide 28
BUN 19 H
Creatinine 0.8
Glucose 111 H
Calcium 7.9 L
Vital Signs:
Vital Signs
Temp Pulse Resp BP Pulse Ox
98.4 F 77 18 127/53 98
08/07/25 07:13 08/07/25 07:13 08/07/25 07:13 08/07/25 07:13 08/07/25 07:13
I&O
10/12/3008/07/25 08/08/25
06:59 06:59 06:59
Intake Total 175 / 175 720 / 720
Balance 175 / 175 720 / 720
Review of Systems
-
History Source: Patient
All other systems: Reviewed and negative
Physical Exam
-
General: No Apparent Distress
HEENT: Normocephalic
Respiratory: Clear to Auscultation
Cardiac: Regular Rhythm
Musculoskeletal: Other (not swollen and non-tender L hip with minimal blood on dressing)
Neuro: Awake, Alert, Oriented and AO x 3
Psych: Calm
--- NOTE | 2025-08-07 09:16 | W.DCSUMMARY ---
Addendum entered and electronically signed by Tay Gilbert MD 08/09/25 09:39:
discharge date 08/09/25
Hgb stable for 24h - medically safe for d/c
Original Note:
Discharge Summary
Discharge Data
Date of Admission: 08/05/25
Date of Discharge: 08/07/25
-
Pending Results: No
Hospital Course
75yo F with PMHX of HTN, Sjogren, RA, HLD, ASCVD, MV prolapse came after fall to the floor when she stepped onto the step with her LLE. SHe has chronic problem with LLE strength for some time now with MRI head, spine, EMG done as outpatient,
currently scheduled for MRI of L knee and ortho follow up due to severe osteoarthritis of her knee. Found transverse fracture through the midshaft of the left femur. s/p L hip Gamma Nail on 08/05/25 with , postOP course unremarkable, remove
clips in 2 weeks with ortho, partial WB, ASA 325mg for DVT ppx. Had significant swelling post-trauma due to bleeding into the thigh, so Hgb dropped. discussed drop with ortho bedside no concern for ongoing bleeding. most likely Hgb equilibration
after trauma, bleed, Sx and IVF Repeat CBC in 5 days - family verbalized understanding of the instructions. medically stable for d/c home. STR was offered upon discussion, but family is planning to provide assistance at home. Home PT recommended
I have spent at least 36min reviewing chart, test results, communication with consultants and providing direct patient care
Patient was managed for:
#transverse fracture through the midshaft of the left femur
#Acute blood loss anemia 2/2 trauma
#Hypoxia in ED
#MV prolapse
#Hypocalcemia
#Sjogrens
#RA
#HLD
#Hearing impaired
#ASCVD
#Essential HTN
#Anxiety
Discharge Plan
-
Patient Disposition: Home with Home Care
Discharge Diagnosis/Procedures: L femoral Fx
Diet: Low Sodium
Additional Activity: Partial weightbearing left lower extremity with walker
Blood Work: CBC with family doctor in 5 days after discharge
Other Services: PT
Referrals:
Jorge Us MD [[facility]] - in two weeks
Referral Note: Skin clip removal 2 weeks postop
UNKNOWN - PT NOT,INTERVIEWE [Family Provider]
Prescriptions:
New
sennosides [Pippa-lg] 8.6 mg Tablet
17.2 mg PO BID Qty: 30 0RF
aspirin 325 mg Tablet
325 mg PO DAILY Qty: 30 0RF
oxycodone 5 mg Tablet
5 mg PO Q4HPRN PRN (Reason: pain) Qty: 9 0RF
Continued
atorvastatin 20 MG tablet
20 mg PO HS
diltiazem HCl 240 MG capsule,extended release 24hr
240 mg PO DAILY
hydrochlorothiazide 12.5 MG capsule
12.5 mg PO DAILY
hydroxychloroquine 200 MG tablet
400 mg PO DAILY
atenolol 50 MG tablet
50 mg PO HS
Prolia 60 MG/ML syringe
60 mg SQ .2XYEAR
cholecalciferol (vitamin D3) 1,000 UNITS tablet
1,000 units PO DAILY
Citracel-Calcium Citrate
4 tab PO DAILY
pilocarpine HCl 5 mg Tablet
5 mg PO DAILY
Held
aspirin [Scar Chewable Aspirin] 81 MG tablet,chewable
81 mg PO DAILY
Hold Instructions: until completed Aspirin 325mg course
Discharge Orders:
Discharge Patient (As Directed); Ordered 08/07/25
Ordered By: Tay Gilbert
Discharge Date and Time
Print Language: GAMBIAN
[2025-08-07] MEDS: CALCIUM GLUCONATE 100 IV (09:43)
--- NOTE | 2025-08-07 09:51 | CM ---
Reviewed the chart notes and spoke with the patient's spouse at the bedside. IMM reviewed. Patient to be discharged to home with VN services. TT to VN liaison. VN will order hospital bed, bsc, and rw for the patient. Attending updated on
need for supplies to be in home prior to discharge. CM continues to be available to patient/family and is monitoring medical plan for needs at discharge.
Plan: Discharge to home with VN services.
--- NOTE | 2025-08-07 10:56 | VNURNOTE ---
Addendum entered by Susy Chandler RN 08/07/25 12:42:
Family requesting a wheelchair as well. updated Rx and clinicals faxed to [facility]. Rep Khang aware.
Addendum entered by Susy Chandler RN 08/07/25 11:36:
Faxed Rx and clinicals for hospital bed, commode, bedside table to [facility]. Requested Sunday delivery and to contact daughter Ab for coordination. . phone [phone]. Rep Khang cell [phone].
Original Note:
Home Health Liaison met with patient and daughter Ab at bedside to discuss [facility] nurse/therapy, visits, schedule and homebound status. All are agreeable and understand that visits at home will be 2-3 x per week to assess and teach medical
management. All are aware that [facility] will contact them for start of care in 1-2 days after discharge from . Provided contact number for [facility]. Patient requires a hospital bed, commode and bedside tray table. Will need delivered to home
prior to DC. DME approval and delivery usually takes 1-2 days. Hospitalist aware. Daughter and pt aware.
Will fax Rx and clinicals to [facility] once note updated by Hospitalist.
[facility] referral accepted in [facility].
[2025-08-07] MEDS: LIPITOR 20 MG PO (21:37)
[2025-08-07] MEDS: TENORMIN 50 MG PO (21:37)
[2025-08-07] MEDS: DILAUDID 0.5 MG IV (21:38)
[2025-08-08] VITALS (7 sets, daily range): BP systolic 102–137; BP diastolic 37–57; O2SAT 97
[2025-08-08] MEDS: ROXICODONE 10 MG PO (05:17)
[2025-08-08] MEDS: TYLENOL 650 MG PO ×6 (05:17→23:49)
[2025-08-08 06:48] LABS: Hematocrit 22.3 % (37.0-47.0); Hemoglobin 7.7 g/dL (12.0-16.0)
[2025-08-08] MEDS: SENOKOT 17.2 MG PO ×2 (08:47→20:51)
[2025-08-08] MEDS: ORETIC 12.5 MG PO (08:47)
[2025-08-08] MEDS: PLAQUENIL 400 MG PO (08:47)
[2025-08-08] MEDS: ASPIRIN 325 MG PO (08:47)
[2025-08-08] MEDS: VITAMIN D3 (cholecalciferol) 25 MCG PO (08:48)
[2025-08-08] MEDS: COLACE 100 MG PO ×2 (08:48→20:51)
[2025-08-08] MEDS: SALAGEN 5 MG PO (08:48)
[2025-08-08] MEDS: CARDIZEM CD 240 MG PO (08:48)
[2025-08-08] MEDS: ROXICODONE 5 MG PO (09:17)
--- NOTE | 2025-08-08 11:30 | W.PN.HOSP.TC ---
Today's Communication/Plan
-
serial H&H
Assessment / Plan
Assessment / Plan
75yo F with PMHX of HTN, Sjogren, RA, HLD, ASCVD, MV prolapse came after fall to the floor when she stepped onto the step with her LLE. SHe has chronic problem with LLE strength for some time now with MRI head, spine, EMG done as outpatient,
currently scheduled for MRI of L knee and ortho follow up due to severe osteoarthritis of her knee. Found transverse fracture through the midshaft of the left femur. s/p L hip Gamma Nail on 08/05/25 with , postOP course unremarkable, remove
clips in 2 weeks with ortho, partial WB, ASA 325mg for DVT ppx. Had significant swelling post-trauma due to bleeding into the thigh, so Hgb dropped. discussed drop with ortho bedside no concern for ongoing bleeding. most likely Hgb equilibration
after trauma, bleed, Sx and IVF Repeat CBC in 5 days - family verbalized understanding of the instructions. medically stable for d/c home
A/P:
#transverse fracture through the midshaft of the left femur
most liekly 2/2 osteoporosis
already on Prolia
Pain mgmt
Ortho mgmt: s/p L hip Gamma Nail on 08/05/25 with , postOP course unremarkable, remove clips in 2 weeks with ortho, partial WB, ASA 325mg for DVT ppx
PT/OT
#Acute blood loss anemia 2/2 trauma
significant posttraumatic bleeding
Post OP - thigh soft, no significant blood on dressing, discussed drop with ortho bedside no concern for ongoing bleeding. most likely Hgb equilibration after trauma, bleed, Sx and IVF
Resiscussed progressive anemia with Ortho on 08/08/25 - serial H&H, trnasfuse as needed and if further drop - schedule CTA LLE
#Hypoxia in ED
resolved with deep breathing, so etiology is most liekly 2/2 shallow breathing due to pain
Incentive spirometry
Chest XR unremarkable for acute findings
#MV prolapse
EKG preop - no ischemic findings
#Hypocalcemia
repelted
#Sjogrens
#RA
#HLD
#Hearing impaired
#ASCVD
#Essential HTN
cont home meds
#Anxiety
Xanax PRN
DVt ppx ASA as per Ortho
Full code
I have spent at least 51min reviewing chart, test results, communication with consultants, family bedside and providing direct patient care
Anticipated Discharge: Within 24 hours
Subjective/Interval History
-
Date of Service: August 08, 2025
Objective Data
-
Labs:
Laboratory Results
08/08/25 08/08/25 08/08/25
06:06 12:00 20:00
Hgb 7.7 L Pending Pending
Hct 22.3 L Pending Pending
Vital Signs:
Vital Signs
Temp Pulse Resp BP Pulse Ox
99 F 70 16 102/37 96
08/08/25 07:35 08/08/25 07:35 08/08/25 07:35 08/08/25 07:35 08/08/25 07:35
I&O
08/07/25 08/08/25 08/09/25
06:59 06:59 06:59
Intake Total 720 / 720
Balance 720 / 720
Review of Systems
-
History Source: Patient
All other systems: Reviewed and negative
Physical Exam
-
General: Comfortable
HEENT: Normocephalic and Hearing Impaired
Musculoskeletal: Other (no significant swelling or bruising over L hip)
Neuro: Awake, Alert, Oriented and AO x 3
Psych: Calm
[2025-08-08 11:44] LABS: Hematocrit 22.9 % (37.0-47.0); Hemoglobin 7.9 g/dL (12.0-16.0)
[2025-08-08 20:49] LABS: Hematocrit 21.8 % (37.0-47.0); Hemoglobin 7.7 g/dL (12.0-16.0)
[2025-08-08] MEDS: TENORMIN 50 MG PO (20:51)
[2025-08-08] MEDS: LIPITOR 20 MG PO (20:51)
[2025-08-08] MEDS: MELATONIN 5 MG PO (23:49)
[2025-08-09 03:25] VITALS: BP 125/54
[2025-08-09 03:57] VITALS: BMI 32.6
[2025-08-09] MEDS: TYLENOL 650 MG PO ×2 (04:59→08:55)
[2025-08-09 05:47] LABS: Hematocrit 22.0 % (37.0-47.0); Hemoglobin 7.6 g/dL (12.0-16.0)
[2025-08-09 06:10] VITALS: BMI 32.6
[2025-08-09 07:50] VITALS: BP 146/54
[2025-08-09] MEDS: COLACE 100 MG PO (08:54)
[2025-08-09] MEDS: PLAQUENIL 400 MG PO (08:54)
[2025-08-09] MEDS: SENOKOT 17.2 MG PO (08:54)
[2025-08-09] MEDS: VITAMIN D3 (cholecalciferol) 25 MCG PO (08:54)
[2025-08-09] MEDS: ASPIRIN 325 MG PO (08:54)
[2025-08-09] MEDS: SALAGEN 5 MG PO (08:54)
[2025-08-09] MEDS: CARDIZEM CD 240 MG PO (08:55)
[2025-08-09] MEDS: ORETIC 12.5 MG PO (08:55)
[2025-08-09] MEDS: ROXICODONE 5 MG PO (08:58)
--- NOTE | 2025-08-09 09:36 | W.PN.HOSP.TC ---
Today's Communication/Plan
-
dc
Assessment / Plan
Assessment / Plan
75yo F with PMHX of HTN, Sjogren, RA, HLD, ASCVD, MV prolapse came after fall to the floor when she stepped onto the step with her LLE. SHe has chronic problem with LLE strength for some time now with MRI head, spine, EMG done as outpatient,
currently scheduled for MRI of L knee and ortho follow up due to severe osteoarthritis of her knee. Found transverse fracture through the midshaft of the left femur. s/p L hip Gamma Nail on 08/05/25 with , postOP course unremarkable, remove
clips in 2 weeks with ortho, partial WB, ASA 325mg for DVT ppx. Had significant swelling post-trauma due to bleeding into the thigh, so Hgb dropped. discussed drop with ortho bedside no concern for ongoing bleeding. most likely Hgb equilibration
after trauma, bleed, Sx and IVF, since no further drop noted and additional 24h monitoring before D/C showed stable Hgb that does not warrant transfusiion Repeat CBC in 5 days - family verbalized understanding of the instructions. medically stable
for d/c home. Roller walker Rx provided
A/P:
#transverse fracture through the midshaft of the left femur
most liekly 2/2 osteoporosis
already on Prolia
Pain mgmt
Ortho mgmt: s/p L hip Gamma Nail on 08/05/25 with , postOP course unremarkable, remove clips in 2 weeks with ortho, partial WB, ASA 325mg for DVT ppx
PT/OT
#Acute blood loss anemia 2/2 trauma
significant posttraumatic bleeding
Post OP - thigh soft, no significant blood on dressing, discussed drop with ortho bedside no concern for ongoing bleeding. most likely Hgb equilibration after trauma, bleed, Sx and IVF
Resiscussed progressive anemia with Ortho on 08/08/25 - serial H&H, trnasfuse as needed and if further drop - schedule CTA LLE
#Hypoxia in ED
resolved with deep breathing, so etiology is most liekly 2/2 shallow breathing due to pain
Incentive spirometry
Chest XR unremarkable for acute findings
#MV prolapse
EKG preop - no ischemic findings
#Hypocalcemia
repelted
#Sjogrens
#RA
#HLD
#Hearing impaired
#ASCVD
#Essential HTN
cont home meds
#Anxiety
Xanax PRN
DVt ppx ASA as per Ortho
Full code
I have spent at least 36min reviewing chart, test results, communication with consultants, family bedside and providing direct patient care
Anticipated Discharge: Today
Subjective/Interval History
-
Date of Service: August 09, 2025
Objective Data
-
Labs:
Laboratory Results
08/09/25
05:06
Hgb 7.6 L
Hct 22.0 L
Vital Signs:
Vital Signs
Temp Pulse Resp BP Pulse Ox
98.6 F 82 16 146/54 95
08/09/25 07:50 08/09/25 07:50 08/09/25 07:50 08/09/25 07:50 08/09/25 07:50
I&O
08/08/25 08/09/25 08/10/25
06:59 06:59 06:59
Intake Total 1260 / 1260
Balance 1260 / 1260
Physical Exam
-
General: No Apparent Distress
HEENT: Normocephalic
Cardiac: Regular Rhythm
GI: Soft, Nontender and Nondistended
Genito-urinary: No Costovertebral Tender
Musculoskeletal: Other (mild bruising around dependent area of L hip, no swelling)
Skin: Warm
Neuro: Awake, Alert, Oriented and AO x 3
Psych: Calm
[2025-08-09 11:00] VITALS: BP 137/56
[2025-08-09 11:14] VITALS: BP 137/56
--- NOTE | 2025-08-09 12:20 | CM ---
Addendum entered by Ruperto Ball 08/09/25 12:21:
Patient left before IMM could be completed.
Original Note:
Following up on Patient. Patient discharging. PLAN: Home w/ [facility] that was already set up.
== END 2025-08-09 11:20 | disposition home health service (06) | DRG 481 ==
LOC: 2 SOUTH 03:58
PROVIDERS: Physician Assistant Surgical; ADMITTING PHYSICIAN Internal Medicine; ATTENDING PHYSICIAN Internal Medicine; CONSULT PHYSICIAN Specialist; EMERGENCY PHYSICIAN Student in an Organized Health Care Education/Training Program
PROC: 0QS906Z Reposition Left Femoral Shaft with Intramedullary Internal Fixation Device, Open Approach (ICD-10-PCS; 2025-08-05)
DX: M80.052A Age-related osteoporosis with current pathological fracture, left femur, initial encounter for fracture (principal); D62 Acute posthemorrhagic anemia; M06.9 Rheumatoid arthritis, unspecified; M35.00 Sjogren syndrome, unspecified; M17.12 Unilateral primary osteoarthritis, left knee; I10 Essential (primary) hypertension; I34.0 Nonrheumatic mitral (valve) insufficiency; H90.5 Unspecified sensorineural hearing loss; M81.0 Age-related osteoporosis without current pathological fracture; F41.9 Anxiety disorder, unspecified; I25.10 Atherosclerotic heart disease of native coronary artery without angina pectoris; I34.1 Nonrheumatic mitral (valve) prolapse; E83.51 Hypocalcemia; Z79.82 Long term (current) use of aspirin
CPT/HCPCS: 71045; 73502; 73551; 76000; 80048; 80053; 83880; 85014; 85018; 85025; 86850; 86900; 86901; 93005; 96374; 97116; 97162; 97167; 97530; 97535; 99285

== ENCOUNTER → 2025-09-02 14:53 | Outpatient (REF) | payer OTHER, SELFPAY | LOC: HWRAD 14:53 | PROVIDERS: ATTENDING PHYSICIAN Physician Assistant; FAMILY PHYSICIAN Family Medicine; REFERRING PHYSICIAN Specialist | DX: M25.551 Pain in right hip (principal); M81.0 Age-related osteoporosis without current pathological fracture; R26.89 Other abnormalities of gait and mobility | CPT/HCPCS: 73501; 73552 ==

== ENCOUNTER → 2025-09-29 12:56 | Outpatient (REF) | payer OTHER, SELFPAY | LOC: RAD 12:56 | PROVIDERS: ATTENDING PHYSICIAN Specialist; FAMILY PHYSICIAN Family Medicine | DX: S72.322D Displaced transverse fracture of shaft of left femur, subsequent encounter for closed fracture with routine healing (principal); M79.662 Pain in left lower leg | CPT/HCPCS: 93971 ==

== ENCOUNTER → 2025-10-15 09:11 | Outpatient (REF) | payer OTHER, SELFPAY | LOC: DHVS 09:11 | PROVIDERS: ATTENDING PHYSICIAN Specialist; FAMILY PHYSICIAN Family Medicine | DX: I82.452 Acute embolism and thrombosis of left peroneal vein (principal) | CPT/HCPCS: 93971 ==